=== PATIENT | male | born 1990 | race Two or more races ===

== ENCOUNTER 2016-05-10 14:42 | Emergency (ER) | payer OTHER ==
[~2016-05-10] VITALS: Ht 177.8 cm; Wt 73.5 kg
[2016-05-10 14:47] VITALS: BP 125/79
== END 2016-05-10 16:05 | disposition home or self-care (01) ==
LOC: EDSEX 14:46 → ER 14:46
DX: M25.562 Pain in left knee (principal)
CPT/HCPCS: 73564-TC; A4606; Z7610

== ENCOUNTER 2016-10-05 00:23 | Emergency (ER) | payer OTHER ==
[~2016-10-05] VITALS: Ht 177.8 cm; Wt 72.6 kg
[2016-10-05 00:40] VITALS: BP 119/68
--- NOTE | 2016-10-05 01:55 | NUR ---
CALLED X3; NO ANSWER.
--- NOTE | 2016-10-05 02:11 | NUR ---
INFORMED "PT LEFT"
== END 2016-10-05 02:13 | disposition left against medical advice (07) ==
LOC: ER 00:23
DX: Z53.21 Procedure and treatment not carried out due to patient leaving prior to being seen by health care provider (principal)
CPT/HCPCS: A4606; Z7610